=== PATIENT | female | born 1950 | race Caucasian/White ===

== ENCOUNTER → 2021-01-19 | Outpatient (CLI) | payer MEDICARE ==
--- NOTE | 2021-01-19 13:51 | MR ---
EXAMINATION TYPE: MR shoulder RT wo con DATE OF EXAM: 01/19/2021 COMPARISON: Outside radiograph 12/23/2020 HISTORY: 70 year-old female M25.511, right shoulder pain TECHNIQUE: Multiplanar, multisequence imaging of the right shoulder is performed without contrast. FINDINGS: Long head biceps tendon is not visualized and may be torn and retracted. Mild heterogeneity of the subscapularis tendon. The majority of the subscapularis tendon remains inta ct. Severe degenerative change of the acromioclavicular joint with joint space narrowing, marginal spurri ng, and subchondral marrow signal changes. Inferior spurring encroaches onto the subacromial space. Wispy fibers of the supraspinatus and infraspinatus tendon are seen. However, the vast majority is ot herwise completely torn with barium. Retraction to the level of the suprascapular notch by up to near ly 6 cm. Moderate glenohumeral joint effusion. There is subchondral cystic change in the posterior glenoid fidel suring 5 mm and moderate thinning of posterior glenoid articular cartilage. Mild thinning of superior humeral head articular cartilage and mild spurring about the glenoid humeral joint. There is superio r subluxation of the humeral head nearly abutting the undersurface of the acromion compatible with miguel int instability. Degenerative and blunted glenoid labrum. Small loose bodies in the subcoracoid recess measuring up to 6 mm. There are mild fatty streaks within the supraspinatus and infraspinatus muscle bellies with edematous change. No Hill-Sachs deformity or os acromiale. Patchy red marrow is present and can be seen in setting of anemia, obesity, smoking, chronic disease. IMPRESSION: 1. The long head biceps tendon is not visualized and may be torn and retracted. 2. Massive full-thickness rotator cuff tear involving essentially the entire supraspinatus and infras pinatus tendons. Some thin, wispy fibers may remain intact. Variable stump retraction by up to 6 cm t o the level of the suprascapular notch. Reactive edema in both supraspinatus and infraspinatus muscle bellies with mild fatty infiltration. 3. 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 A couple small loo se bodies measure up to 6 mm. Moderate joint effusion. 4. Severe AC joint OA with inferior spurring encroaching onto the subacromial space.
== END | disposition home or self-care (01) ==
LOC: RADMRIMAIN 12:34
PROVIDERS: ATTEND Orthopaedic Surgery
DX: M75.101 Unspecified rotator cuff tear or rupture of right shoulder, not specified as traumatic (principal); M19.011 Primary osteoarthritis, right shoulder; M25.311 Other instability, right shoulder; M25.411 Effusion, right shoulder

== ENCOUNTER → 2024-06-20 | Day surgery (SDC) | payer MEDICARE ==
[~2024-06-20] MED LIST: GLYCOPYRROLATE 0.2 MG/ML 2 ML VIAL ONE; PROPOFOL 10 MG/ML 20 ML VIAL IV ONE
[2024-06-20 13:32] VITALS: RESP 16; TEMP 98.1
[2024-06-20] MEDS: LACTATED RINGERS 1,000 ML IV SCH (13:42)
[2024-06-20] MEDS: IV FLUID CONTINUATION 1,000 ML IV ONE ×2 (13:42→14:13)
--- NOTE | 2024-06-20 14:45 | P.PCN ---
Date of Procedure: 06/20/24 Procedure(s) Performed: BRIEF HISTORY: Patient is a 74-year-old pleasant white female scheduled for an elective colonoscopy as a part of screening for colon cancer/positive Cologuard. At that was diagnosed with rectal cancer at age 56. PROCEDURE PERFORMED: Colonoscopy with snare polypectomy. PREOPERATIVE DIAGNOSIS: Screening for colon cancer/positive Cologuard and family history of colon cancer. IV sedation per Anesthesia. PROCEDURE: After informed consent was obtained, the patient, was brought into the endoscopy unit. IV sedation was administered by Anesthesia under continuous monitoring. Digital rectal examination was normal. Initially the Olympus CF-160 flexible video colonoscope was then inserted in the rectum, gradually advanced into the cecum without any difficulty. Careful examination was performed as the scope was gradually being withdrawn. Ileocecal valve and the appendiceal orifice were visualized and appeared normal. Prep was excellent. Mucosa of the cecum, ascending colon, appeared normal. In the ascending colon there was a 4 mm polyp removed by cold snare polypectomy. In the transverse colon there was a 3 mm and 5 mm polyp removed by cold snare polypectomy. Transverse colon, descending colon, sigmoid colon, and rectum appeared normal. In the distal rectum there was a 5 mm polyp removed by snare polypectomy. Scattered sigmoid diverticulosis seen. Retroflexion was performed in the rectum and no lesions were seen. The patient tolerated the procedure well. IMPRESSION: 4 mm ascending colon polyp status post cold snare polypectomy 2 polyps in the transverse colon measuring between 3 mm and 5 mm in size removed by snare polypectomy 5 mm distal rectal polyp status post polypectomy Scattered sigmoid diverticulosis RECOMMENDATIONS: Findings of this examination were discussed with the patient as well as her family.. She was advised to follow-up with the biopsy results. If the biopsy reveals adenoma she can have a repeat colonoscopy in 3 years.
[2024-06-20 15:04] VITALS: BP 124/72; PULSE 73
== END ==
LOC: ORWHC2ENDO 12:40
PROVIDERS: ATTEND Internal Medicine Gastroenterology
DX: Z12.11 Encounter for screening for malignant neoplasm of colon (principal); D12.2 Benign neoplasm of ascending colon; D12.3 Benign neoplasm of transverse colon; K62.1 Rectal polyp; K57.30 Diverticulosis of large intestine without perforation or abscess without bleeding; K21.9 Gastro-esophageal reflux disease without esophagitis; I10 Essential (primary) hypertension; L23.1 Allergic contact dermatitis due to adhesives; Z80.0 Family history of malignant neoplasm of digestive organs; Z79.890 Hormone replacement therapy; Z79.82 Long term (current) use of aspirin; Z79.899 Other long term (current) drug therapy
CPT/HCPCS: 88305; 45385; J2704; J1596